=== PATIENT | female | born 1945 | race African-American/Black ===

== ENCOUNTER 2018-05-13 12:14 | Emergency (ER) | payer BC, MEDICARE ==
[~2018-05-13] VITALS: Ht 160 cm; Wt 68.0 kg
[2018-05-13 12:20] VITALS: BP 119/72
[2018-05-13 12:53] LABS: APPEARANCE,URINE CLEAR; BILIRUBIN, URINE NEGATIVE (NEGATIVE); COLOR,URINE PALE YELLOW; GLUCOSE, URINE (UA) NEGATIVE (NEGATIVE); KETONES,URINE NEGATIVE (NEGATIVE); LEUKOCYTE ESTERASE ,URINE 1+ (NEGATIVE); NITRITE,URINE NEGATIVE (NEGATIVE); PH,URINE 5 (4.5-8.0); PROTEIN,URINE NEGATIVE (NEGATIVE); UROBILINOGEN,URINE NORMAL MG/DL (0.0-1.0)
--- NOTE | 2018-05-13 12:59 | Emergency Room Report ---
History of Present Illness General Chief Complaint: General Complaint Source: Patient Present Illness HPI 73 YO female presents to the ED with multiple (4) different complaints: 1) C/O persistent UTI symptoms despite taking oral abx, and having a previously normal UA at an urgent care. Pt. reports that her urinary symptoms are dark colored urine, strong odor, and "lots of bubbles" . denies dysuria, hematuria, frequency or urgency. denies fevers or chills. 2) C/O 5-10 in severity right sided low back pain. pt. reports pain is worse in the AM. pt. reports TTP. Denies trauma or fall. Denies numbness tingling or loss of sensation or gross motor movements of the extremities, incontinence of bowel or bladder. 3) C/O decreased hearing in the left ear and now progressing into the right ear as well.pt. reports sound is muffled. Reports intermittent Tinnitus. Denies pain , fullness, or ear d/c. pt. reports recent URI. Denies dizziness or vertigo. Denies CAPPS, N/V. 4) Pt. reports constipation x 4 days. pt. states she has been staying hydrated, she normally is not constipated. Denies new medications or changes to her diet. Pt. denies abdominal pain. Denies blood in the stool or black tarry stool. Denies abdominal tenderness. Allergies: Coded Allergies: No Known Allergies (Unverified , 05/13/18) Patient History Past Medical History: see triage record Past Surgical History: none Pertinent Family History: none Now: No Reviewed Nursing Documentation: PMH: Agreed; PSxH: Agreed Nursing Documentation-PMH Past Medical History: No Stated History Review of Systems All Other Systems: negative except mentioned in HPI Physical Exam Vital Signs Date Time Temp Pulse Resp B/P (MAP) Pulse Ox O2 Delivery O2 Flow Rate FiO2 05/13/18 12:19 98.3 71 18 119/72 95 Room Air 98.2 Sp02 EP Interpretation: reviewed, normal General Appearance: no apparent distress, alert, GCS 15, non-toxic Head: normocephalic, atraumatic Eyes: bilateral eye normal inspection, bilateral eye PERRL ENT: hearing grossly normal, normal voice, TMs + canals normal - small clear fluid line behind the left TM otherwise WNL bilaterally, other Neck: full range of motion Respiratory: lungs clear, normal breath sounds, speaking full sentences Cardiovascular #1: regular rate, rhythm Gastrointestinal: normal bowel sounds, non tender, soft Rectal: deferred Genitourinary: normal inspection, no CVA tenderness Musculoskeletal: back normal, gait/station normal, normal range of motion, other - pain is reproducible with palpation and is more in the sacral area, no CVA tenderness. FROM and normal gait., tender - TTP in the right PSIS area. Neurologic: alert, oriented x3, responsive, motor strength/tone normal, sensory intact, normal gait, speech normal, grossly normal Psychiatric: judgement/insight normal Skin: normal color, no rash, warm/dry, well hydrated Lymphatic: no adenopathy Medical Decision Making PA Attestation Dr. Guadalupe is my supervising physician whom pt. management has been discussed with. Diagnostic Impression: Primary Impression: Right low back pain Qualified Codes: M54.5 - Low back pain Additional Impressions: Ear congestion Qualified Codes: H93.8X3 - Other specified disorders of ear, bilateral Constipation Qualified Codes: K59.00 - Constipation, unspecified Urine malodor ER Course 73 YO female presents to the ED with multiple (4) different complaints: 1) C/O persistent UTI symptoms despite taking oral abx, and having a previously normal UA at an urgent care. Pt. reports that her urinary symptoms are dark colored urine, strong odor, and "lots of bubbles" . denies dysuria, hematuria, frequency or urgency. denies fevers or chills. 2) C/O 5-10 in severity right sided low back pain. pt. reports pain is worse in the AM. pt. reports TTP. Denies trauma or fall. Denies numbness tingling or loss of sensation or gross motor movements of the extremities, incontinence of bowel or bladder. 3) C/O decreased hearing in the left ear and now progressing into the right ear as well.pt. reports sound is muffled. Reports intermittent Tinnitus. Denies pain , fullness, or ear d/c. pt. reports recent URI. Denies dizziness or vertigo. Denies CAPPS, N/V. 4) Pt. reports constipation x 4 days. pt. states she has been staying hydrated, she normally is not constipated. Denies new medications or changes to her diet. Pt. denies abdominal pain. Denies blood in the stool or black tarry stool. Denies abdominal tenderness. Ddx considered but are not limited to UTi , Pyelo, STI, Stone, Cystitis, muscular strain, constipation, acute abdomen, Vital signs: are WNL, pt. is afebrile H&PE are most consistent with possible UTI will do UA to evaluate. Low back pain is reproducible with palpation and is more in the sacral area, no CVA tenderness. FROM and normal gait. PE does not suggest acute abdominal etiology at this time. there is small clear fluid line noted behind the left TM, otherwise canal and TM are WNL bilaterally. ORDERS: - UA labs are attached -- Normal, no evidence of infection no elevation in inflammatory markers, few bacteria and equal amt of squamous cells suggests contamination. ED INTERVENTIONS: - Colace PO Pt. is given ED return precautions for worsening of current symptoms or appearance of new symptoms. DISCHARGE: At this time pt. is stable for d/c to home. Will provide printed patient care instructions, and any necessary prescriptions. Care plan and follow up instructions have been discussed with the patient prior to discharge. Labs Test 05/13/18 12:30 Urine Color Pale yellow Urine Appearance Clear Urine pH 5 (4.5-8.0) Urine Specific [place] 1.020 (1.005-1.035) Urine Protein Negative (NEGATIVE) Urine Glucose (UA) Negative (NEGATIVE) Urine Ketones Negative (NEGATIVE) Urine Blood Negative (NEGATIVE) Urine Nitrite Negative (NEGATIVE) Urine Bilirubin Negative (NEGATIVE) Urine Urobilinogen Normal MG/DL (0.0-1.0) Urine Leukocyte Esterase 1+ (NEGATIVE) Urine RBC 0-2 /HPF (0 - 2) Urine WBC 2-4 /HPF (0 - 2) Urine Squamous Epithelial Cells Occasional /LPF Urine Bacteria Occasional /HPF (NONE) Last Vital Signs Date Time Temp Pulse Resp B/P (MAP) Pulse Ox O2 Delivery O2 Flow Rate FiO2 05/13/18 12:19 98.3 71 18 119/72 95 Room Air 98.2 Disposition: HOME, SELF-CARE Condition: Stable Scripts Docusate Sodium* (COLACE*) 100 Mg Capsule 100 MG ORAL THREE TIMES A DAY, #15 CAP after two days reduce to twice or once daily as needed. Prov: Juli Stevenson 05/13/18 Lidocaine (Lidoderm) 1 Each Adh..patch 1 PATCH TOPIC DAILY, #30 PATCH 0 Refills Patch(es) may remain in place for up to 12 hours in any 24-hour period. Prov: Juli Stevenson 05/13/18 Pseudoephedrine Hcl* (SUDAFED*) 30 Mg Tablet 30 MG PO Q6H, #20 TAB Prov: Juli Stevenson 05/13/18 Methocarbamol* (ROBAXIN-750*) 750 Mg Tablet 750 MG PO TID for 7 Days, #21 TAB 0 Refills Prov: Juli Stevenson 05/13/18 Patient Instructions: Lumbosacral Strain, Urinalysis Test Additional Instructions: Take medications as directed. Follow up with a Primary Care Provider in 3-5 days, even if your symptoms have resolved. --Please review list of primary care clinics, if you do not already have a primary care provider Return sooner to ED if new symptoms occur, or current symptoms become worse. - Please note that this Emergency Department Report was dictated using [employer] fare [employer] technology software, occasionally this can lead to erroneous entry secondary to interpretation by the dictation equipment. Juli Stevenson May 13, 2018 12:59
[2018-05-13] MEDS ORDERED: Docusate 100mg cap ORAL ONE (13:15)
[2018-05-13] MEDS ORDERED: ROBAXIN-750750 MG PO (13:43)
[2018-05-13] MEDS ORDERED: PSEUDOEPHEDRINE30 MG PO (13:43)
[2018-05-13] MEDS ORDERED: COLACE100 MG ORAL (13:43)
[2018-05-13] MEDS ORDERED: LIDODERM700 M1 TOPIC (13:43)
[2018-05-13 13:48] VITALS: BP 119/72
== END 2018-05-13 13:50 | disposition home or self-care (01) ==
LOC: EMR 12:45
DX: M54.5 Low back pain (principal); K59.00 Constipation, unspecified; H83.8X2 Other specified diseases of left inner ear
CPT/HCPCS: 81003; 99284